=== PATIENT | male | born 1955 ===

== ENCOUNTER 2023-09-18 16:43 | Emergency (ER) | payer OTHER, SELFPAY ==
[2023-09-18 16:46] VITALS: BP 151/93
[2023-09-18] MEDS: DECADRON 10 MG PO (17:14)
[2023-09-18 17:22] VITALS: BP 121/77
--- NOTE | 2023-09-18 19:03 | ED.GENMED ---
History of Present Illness
General
Chief Complaint: Allergic Reaction
Source: patient
Time Seen by Provider: 09/18/23 16:53
History of Present Illness
History of Present Illness:
68yoM with a history of a bee allergy presenting for evaluation after a bee sting. Patient was stung by a bee in his left calf approximately 1 hour ago. He decided to come immediately to the ED due to his prior history of anaphylaxis. Patient is
currently asymptomatic and denies any itching, hives, shortness of breath, dysphagia, vomiting, diarrhea, abdominal pain. Patient did not take any medications prior to arrival.
Phy Exam
Physical Exam
Physical Exam:
Patient is well-appearing in no acute distress. Airway patent and phonation normal. Lungs clear to auscultation without wheezing or stridor. No visible wound to left calf where bee sting occurred. No urticaria or rash.
General Physical Exam
General Presentation: well appearing and no apparent distress
General age: appears stated age
General Skin: warm and dry
General Habitus: normal
General Mental: alert
General Hydration: appears well hydrated
Cardiovascular Exam
Cardiovascular Exam: regular rate/rhythm
Heart Sounds: normal
Pulmonary Exam
Pulmonary Exam: lungs clear, no respiratory distress, no rales, no crackles, no rhonchi, no stridor and no wheezing
Gastrointestinal Exam
Gastrointestinal Exam: non tender, soft and non distended
Course
Orders/Labs/Results
Orders:
Orders
09/18/23 17:06
Dexamethasone [Decadron] 10 mg PO NOW STA
Vital Signs
Initial and Last Documented VS:
Initial Vital Signs
Temp Pulse Resp BP Pulse Ox
97.9 F 87 16 151/93 98
09/18/23 16:46 09/18/23 16:46 09/18/23 16:46 09/18/23 16:46 09/18/23 16:46
Last Documented Vital Signs
Temp Pulse Resp BP Pulse Ox
98.0 F 82 18 121/77 98
09/18/23 17:22 09/18/23 17:22 09/18/23 17:22 09/18/23 17:22 09/18/23 17:22
MDM/Problems Addressed
Differential Diagnosis Includes:
68yoM presenting after a bee sting 1 hour ago. 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 Patient is currently asymptomatic. He is afebrile and hemodynamically stable. Patient well-appearing in no acute distress. Airway is patent and lungs clear to
auscultation. No urticaria noted on exam. No evidence of allergic reaction present and sting occurred 1 hour ago. Will give dose of Decadron for prophylaxis. EpiPen refill provided. ED return precautions discussed. He was discharged in stable
condition.
*Critical Care Note
Total Time (30-74mins, 75-104mins- exclusive of procedures): Not Applicable
ED Attending Note
-
Portions of this chart may have been created with voice recognition software.� Occasional wrong word or��sound alike� substitutions may have occurred due to the inherent limitations of voice recognition software.
Discharge Plan
Departure
Patient Disposition: Home (Routine Discharge)
Date of Disposition: 09/18/23
Time of Disposition: 17:07
Patient with high blood pressure during this ER visit?: Yes
Discharge Problem:
Bee sting
Instructions: Insect bites and stings
Prescriptions:
New
epinephrine [EpiPen] 0.3 mg/0.3 mL auto-injector
0.3 mg IM .STAT PRN (Reason: anaphylaxis) Qty: 2 0RF
Interventions
Interventions:
*Risk Screen - Suicide Last Done: 09/18/23 17:24
*General Assessment Last Done: 09/18/23 17:24
*Neglect/Abuse Screening Last Done: 09/18/23 17:24
*Nursing Disposition Last Done: 09/18/23 17:15
ED- Cardiac Assessment Last Done: 09/18/23 17:24
ED- Pulmonary Assessment Last Done: 09/18/23 17:24
ED-Skin Assessment Last Done: 09/18/23 17:24
Discharge Date and Time
Discharge Date/Time: 09/18/23 17:59
Print Language: MEXICAN
== END 2023-09-18 17:59 | disposition home or self-care (01) ==
LOC: EMR 16:43
PROVIDERS: EMERGENCY PHYSICIAN Emergency Medicine; FAMILY PHYSICIAN Family Medicine
DX: T63.441A Toxic effect of venom of bees, accidental (unintentional), initial encounter (principal)
CPT/HCPCS: 99282